=== PATIENT | male | born 1980 ===

== ENCOUNTER → 2021-09-14 | Outpatient (CLI) | payer BC ==
--- NOTE | 2021-09-14 13:08 | RAD ---
XR EXAM OF ANKLE_RIGHT 3VIEWS History: Reason: RIGHT ANKLE PAIN WITH SWELLING ONSET LAST WEEK, NO INJURY / Spl. Instructions: / Hi story: Technique: 3 views right ankle Comparison: None. Findings: Symmetric ankle mortise. No acute fracture. Tiny plantar calcaneal spur. Mild ankle DJD. Impression: 1. No acute osseous abnormality. Electronically signed by: Isidoro Medina DO (09/14/2021 1:06 PM) [id number]
== END ==
LOC: RAD 12:03
PROVIDERS: ATTEND Nurse Practitioner Family
DX: M19.071 Primary osteoarthritis, right ankle and foot (principal); M25.471 Effusion, right ankle
CPT/HCPCS: 73610